=== PATIENT | male | born 2000 | race Two or more races ===

== ENCOUNTER → 2019-07-07 | Emergency (ER) | payer OTHER ==
[~2019-07-07] VITALS: Ht 172.7 cm; Wt 63.0 kg
[~2019-07-07] MED LIST: IBUPROFEN 600 MG TABLET PO ONE
--- NOTE | 2019-07-07 14:50 | NUR ---
PATIENT AWAKE ALERT CALM NON DISTRESS HIS DAD @ BEDSIDE BOTH MADE AWARE PALN OF CARE
--- NOTE | 2019-07-07 15:08 | NUR ---
CALLED CT MADE AWARE PATIENT S READY
--- NOTE | 2019-07-07 15:51 | NUR ---
DC HOME INSTRUCTION GIVEN AGREES TO CALL PMD IN 2 DAYS VERBALIZED UNDERSTANDING
[2019-07-07 15:52] VITALS: BP 123/67
== END | disposition home or self-care (01) ==
LOC: ER 14:20
DX: S06.0X0A Concussion without loss of consciousness, initial encounter (principal); S05.12XA Contusion of eyeball and orbital tissues, left eye, initial encounter; S09.8XXA Other specified injuries of head, initial encounter; F10.10 Alcohol abuse, uncomplicated; Y90.9 Presence of alcohol in blood, level not specified; Y04.0XXA Assault by unarmed brawl or fight, initial encounter; Y93.89 Activity, other specified; Y92.89 Other specified places as the place of occurrence of the external cause; Y99.8 Other external cause status
CPT/HCPCS: 70450-TC